=== PATIENT | female | born 1970 | race Caucasian/White ===

== ENCOUNTER 2017-02-07 16:41 | Emergency (ER) | payer MEDICARE, OTHER ==
[~2017-02-07] VITALS: Ht 162.5 cm; Wt 68.0 kg
[~2017-02-07 16:41] MED LIST: AMOXICILLIN500 MG PO; CIPROFLOXACIN500 MG PO; DARVOCET N 1001 TAB PO; DAYPRO600 M1 PO; FLEXERIL10 MG PO; FLONASE ALLERG9.9 ML NAS; HYDROCODONE BIT1 T11 PO; LORTAB 7.5/5001 TA1 PO; MIDRIN (DURADR1 CAP PO; MOTRIN800 MG PO; PHENERGAN25 MG RC; PREDNISONE10 MG PO; PRILOSEC20 MG PO; ROBAXIN750 MG PO; ROBITUSSIN AC 110 ML PO; TORADOL10 MG PO; ULTRAM 50 MG ED2 TAB PO; VALTREX500 MG PO; VICODIN 5/500 505 MG PO; VICODIN 500 MG-1 TAB PO; VICODIN ES 7501 TAB PO; Vicodin 5/500 505 MG PO; ZANAFLEX4 M1 PO; ZITHROMAX Z PA250 MG PO; ZOFRAN ODT4 MG SL
[2017-02-07 16:50] VITALS: BP 134/80
[2017-02-07] MEDS ORDERED: ALEVE220 MG PO (16:56)
[2017-02-07] MEDS ORDERED: PREDNISONE10 MG PO (17:05)
[2017-02-07] MEDS ORDERED: ROBITUSSIN AC 110 ML PO (17:05)
[2017-02-07] MEDS ORDERED: FLONASE ALLERG9.9 ML NAS (17:05)
[2017-02-07] MEDS ORDERED: CLARITIN10 MG PO (17:05)
== END 2017-02-07 17:58 | disposition home or self-care (01) ==
LOC: ED 16:41
DX: B34.9 Viral infection, unspecified (principal); R03.0 Elevated blood-pressure reading, without diagnosis of hypertension; F17.200 Nicotine dependence, unspecified, uncomplicated

== ENCOUNTER 2017-03-18 14:19 | Inpatient (IN) | payer MEDICARE, OTHER ==
[~2017-03-18] VITALS: Ht 162.6 cm; Wt 72.6 kg
--- NOTE | ~2017-03-18 | PR ---
[place], [place] PROGRESS NOTE NAME: JAIRO RONDON [facility] #: [id number] UNIT #: [id number] ROOM: 405 DOCTOR: CHANTAL WILLIAMSON MD BIRTHDATE: [birth year] DOS: 03/21/2017 CARDIOLOGY PROGRESS NOTE SUBJECTIVE: The patient was seen at her bedside this morning, 03/21/2017, for followup of chest pain and abnormal stress test. She continues to have chest discomfort intermittently. She is hungry and thirsty. She has been scheduled for catheterization later today at the [facility] and we are awaiting their request for us to transfer her. PHYSICAL EXAMINATION: VITAL SIGNS: Today, her pulse is 72 and regular, blood pressure is 100/78. She is afebrile. NECK: Supple. She has no jugular distention. CHEST: Clear. HEART: Has a regular rhythm with a fourth heart sound, but no third heart sound or murmur. ABDOMEN: Soft and normally active. EXTREMITIES: Showed no edema. IMPRESSION: 1. Atypical chest pain. 2. Abnormal stress test consistent with mid and distal LAD stenosis with anteroapical ischemia. PLAN: The patient is scheduled to have heart catheterization today. Further recommendations will depend upon the results of the test. We thank the hospitalist physicians for asking our advice regarding her care. CHANTAL WILLIAMSON MD CM:PNTRANS [id number] CHANTAL WILLIAMSON MD 03/22/17 0227 interface
--- NOTE | ~2017-03-18 | CON ---
[place], [place] REPORT OF CONSULTATION [id number] UNIT #: [id number] ROOM: 405 DOCTOR: TIN CORONADAVE BIRTHDATE: [birth year] DOS: 03/19/2017 REQUESTING PHYSICIAN: Dr. Shabazz. REASON FOR CONSULTATION: Chest pain. ASSESSMENT: 1. Current presentation with chest pain, heavy, tight with activity. 2. Similar complaint one year ago. The patient did not seek any medical attention. 3. Active tobacco abuse. 4. Obesity with probable obstructive sleep apnea. 5. Elevated D-dimer with a negative CTA of the chest. PLAN: 1. Cycle cardiac enzymes. 2. Keep patient n.p.o. for a stress test in a.m. 3. Initiate Lopressor 25 mg 1 tablet p.o. b.i.d. 4. Enteric-coated aspirin 81 mg. 5. Call for any recurrent chest pain despite the possibility of a normal stress test. 6. Early followup as an outpatient in our clinic here in [place] within 2-4 weeks. HISTORY AND PHYSICAL: The patient is a pleasant 46-year-old female unknown to our practice, was referred by Dr. Shabazz for further evaluation of complaint of chest pain that apparently occurred yesterday while carrying her grandbaby and climbing stairs. The pain is heavy, tight substernal, it did radiate straight to the back and between the shoulder blades associated with nausea and vomiting and cold sweats. This pain lasted about 30 minutes, improved slightly by nitroglycerin by the time she is in the Emergency Room. She had history of back surgery and long rods placed about 8 years ago with limiting her functional capacity significantly. She does not exercise and she tends to stay at home. She also reported significant symptomatic palpitation that lasted a few hours with racing heartbeats that she thought it has no reason for it. The patient noticed this symptomatic palpitation gets worse if she tried to lie down. The patient had similar episode about 1 year ago. No fever, no chills, no night sweats. Maintained good appetite, no weight loss. PAST MEDICAL HISTORY: As detailed in my assessment. SOCIAL HISTORY: The patient continued to smoke, has been doing this for the past 30 years about 1 pack a day. No alcohol or illicit drug abuse. FAMILY HISTORY: The patient's mother of lung cancer at age 71. Her father of unknown causes to her, but most likely from diabetes complications and advanced amputation in the left leg. The patient had 2 brothers and 4 sisters with no reported early family history of heart disease. CURRENT MEDICATIONS: Lovenox, Toradol, Reglan, calcium carbonate, Optiray, [place], [place] REPORT OF CONSULTATION NAME: JAIRO RONDON UNIT #: [id number] ROOM: 405 DOCTOR: DAVE CASTLE MD BIRTHDATE: [birth year] nicotine inhaler, Dulcolax, milk of magnesia, Tylenol, nitroglycerin patch. ALLERGIES: The patient has no known drug allergies. REVIEW OF SYSTEMS: Currently, the patient denies any headache, diplopia or blurry vision. No fever, no chills, no night sweats. No abdominal pain, no bright red blood per rectum or tarry stools, no joint pain, no muscular pain. No anxiety or depression. No polyuria, no polydipsia, no skin rash. PHYSICAL EXAMINATION: GENERAL: The patient is alert, oriented x3, quite pleasant. She is sitting up in bed, does not appear in distress. VITAL SIGNS: Blood pressure 110/72, heart rate 84, respiratory rate of 20, temperature 98.0. HEENT: Extraocular muscles intact. Pupils equal, round, reactive to light. Conjunctivae: No pallor. Throat: No petechiae. NECK: Good upstroke. Unable to appreciate any bruit, no lymphadenopathy, no thyromegaly. HEART: S1, S2 with holosystolic murmur in the left upper sternal border. No rub. No retrosternal heave. CHEST AND BACK: No deformities. LUNGS: Clear to auscultation. Good air movement. No wheezing, rales. ABDOMEN: Obese, soft, nontender. Present bowel sounds. No masses, no bruits. LOWER EXTREMITIES: No edema with faint distal pulses. NEUROLOGIC: Grossly nonfocal. SKIN: No significant rash. LABORATORY DATA: White count 11.7. Potassium 3.6. GFR more than 60. Normal liver function tests. Troponin less than 0.015. Triglycerides 189, total cholesterol 119, LDL 48, HDL is 33. TSH . DAVE CASTLE MD CM:CONSTR:REPORT OF CONSULTATION 1045 03/19/17 1802 interface
--- NOTE | ~2017-03-18 | PR ---
[place], [place] PROGRESS NOTE NAME: JAIRO RONDON UNIT #: [id number] ROOM: 405 DOCTOR: CHANTAL WILLIAMSON MD BIRTHDATE: [birth year] DOS: The patient was seen in the Cardiology Department just prior to her stress test today. She is a 46-year-old woman with a history of active tobacco abuse and possible obstructive sleep apnea who presented to the hospital with chest discomfort. Since she has been in the hospital serial cardiac biomarkers have been negative for an acute myocardial injury. Her lipid profile is intermediate risk. Her electrocardiogram has showed no acute changes. PHYSICAL EXAMINATION: VITAL SIGNS: Today, her pulse is 68 and regular. Blood pressure is 100/64. She is afebrile. She weighs 72.6 kg and has a body mass index of 27.5. HEENT: Normocephalic, atraumatic. Extraocular muscles are intact. Sclerae are clear. Pupils are equal, round and reactive to light. The oral mucosa is moist. Tongue is midline. Neck is supple. She has no jugular distention. Carotids are full without bruits. She has no neck or supraclavicular masses and no thyromegaly. LUNGS: Respirations are unlabored. Her chest is clear to auscultation and percussion. She has no presacral edema or chest wall tenderness. HEART: Regular rhythm. She has a fourth heart sound, but no third heart sound or murmur. The PMI is not displaced. She has no precordial heave, lift or thrill. ABDOMEN: Soft and normoactive without masses, organomegaly or bruits. EXTREMITIES: Showed no edema. Peripheral pulses are palpable in the feet. IMAGING: Her electrocardiogram showed no acute changes today. IMPRESSION: 1. Atypical chest pain, etiology to be discovered. 2. Active tobacco abuse. 3. Elevated D-dimer with negative CT angiogram of the chest. PLAN: We will evaluate her further with a pharmacologic stress test. Further recommendations depend upon the results of the stress examination. [facility] and I thank the hospitalist group for asking our advice regarding the patient's evaluation. [place], [place] PROGRESS NOTE NAME: JAIRO RONDON UNIT #: [id number] ROOM: 405 DOCTOR: CHANTAL WILLIAMSON MD BIRTHDATE: [birth year] CHANTAL WILLIAMSON MD CM:PNTRANS 1027 CHANTAL WILLIAMSON MD 03/20/17 2110 interface
--- NOTE | ~2017-03-18 | WRIGHTHP ---
[place], [place] PATIENT HISTORY AND PHYSICAL EXAM NAME: JAIRO RONDON [facility] #: [id number] UNIT #: [id number] ROOM: 405 DOCTOR: CARLOS MOLINA DO BIRTHDATE: [birth year] DOS: PRIMARY CARE PHYSICIAN: None. The patient was seen and evaluated with the resident on 03/18/2017. Please see the resident's note for further details. ASSESSMENT: 1. Chest pain, rule out myocardial infarction. 2. Syncope. 3. Dyspnea on exertion. 4. Headache. 5. Leukocytosis. 6. Tobacco abuse. 7. Dyslipidemia. 8. Chronic back pain. 9. History of gastroesophageal reflux disease and hiatal hernia. 10. Anxiety. PLAN: We will continue to monitor cardiac enzymes. Cardiology will be consulted. A stat CTA of the chest will be ordered to rule out PE. A CT of the head will also be ordered. She will be given a dose of Toradol, Reglan and IV fluids in an attempt to control her headache. CARLOS MOLINA DO CM:HISPHYS:PATIENT HISTORY AND PHYSICAL EXAMINATION 1848 01 CARLOS MOLINA DO 03/18/171902 interface
--- NOTE | ~2017-03-18 | ST ---
[place], [place] EXERCISE STRESS TEST REPORT NAME: JAIRO RONDON [facility] #: [id number] UNIT #: [id number] ROOM: 405 DOCTOR: CHANTAL WILLIAMSON MD BIRTHDATE: [birth year] DOS: 03/20/2017 INDICATIONS: Atypical chest pain. PROCEDURE: The patient received a rapid infusion of regadenoson 0.4 mg intravenously followed by a saline flush. She experienced chest discomfort and dyspnea, which resolved spontaneously. Her resting electrocardiogram showed sinus rhythm and was normal tracing. Her resting heart rate of 73 grace to 105. The resting blood pressure of 120/74 fell to 104/62. She did not have any diagnostic ST or T-wave changes. After the infusion of regadenoson, she was given radionuclide intravenously. IMPRESSION: 1. Well tolerated infusion of regadenoson. 2. Radionuclide was administered. Please see the separately dictated imaging report for further details of the patient's stress test results. CHANTAL WILLIAMSON MD CM:STRESS:EXERCISE STRESS TEST REPORT [id number] CHANTAL WILLIAMSON MD
[~2017-03-18 14:19] MED LIST changes: +ALEVE220 MG PO; +CLARITIN10 MG PO
[2017-03-18 14:28] VITALS: BP 133/86
[2017-03-18 14:58] LABS: BASO % 0.3 % (0.0-1.0); EOS % 0.2 % (1.0-4.0); HEMATOCRIT 40.9 % (37.0-47.0); IG # 0.1 10*3/uL (0.0-0.1); LYMPH # 3.1 10*3/uL (1.3-4.4); LYMPH % 21.8 % (27.0-41.0); MEAN CORPUSCULAR HGB 29.1 pg (27.0-31.0); MEAN CORPUSCULAR HGB CONC 34.2 g/dl (33.0-37.0); MEAN PLATELET VOLUME 9.6 fl (9.6-12.3); MONO # 0.5 10*3/uL (0.1-1.0); MONO % 3.1 % (3.0-9.0); NEUT # 10.7 10*3/uL (2.3-7.9); NEUT % 74.2 % (47.0-73.0); PLATELET COUNT AUTOMATED 293 10*3/uL (130-400); RED BLOOD COUNT 4.81 10*6/uL (4.10-5.10); RED CELL DISTRI WIDTH 14.3 % (0-14.5); WHITE BLOOD COUNT 14.4 10*3/uL (4.8-10.8)
[2017-03-18 15:01] VITALS: BP 135/85
[2017-03-18 15:14] LABS: BUN 11 mg/dl (7-24); CARBON DIOXIDE 22 mmol/L (21-32); CHLORIDE 106 mmol/L (98-107); EST GLOM FILT AFRICAN AMERICAN > 60 ml/min; GLUCOSE 144 mg/dL (65-99); POTASSIUM 3.6 mmol/L (3.5-5.1); SODIUM 135 mmol/L (136-145)
[2017-03-18 15:16] LABS: TROPONIN I < 0.015 ng/ml (<0.045)
[2017-03-18 16:00] VITALS: BP 138/86
[2017-03-18 16:22] VITALS: BP 138/86
[2017-03-18 20:00] VITALS: BP 115/66
[2017-03-19] VITALS: BP 103/64
[2017-03-19 06:32] LABS: BASO # 0.1 10*3/uL (0.0-0.1); BASO % 0.4 % (0.0-1.0); EOS # 0.1 10*3/uL (0.0-0.4); EOS % 0.9 % (1.0-4.0); HEMATOCRIT 38.9 % (37.0-47.0); HEMOGLOBIN 12.9 g/dl (12.0-16.0); IG # 0.1 10*3/uL (0.0-0.1); LYMPH # 3.5 10*3/uL (1.3-4.4); LYMPH % 29.6 % (27.0-41.0); MEAN CELL VOLUME 86.8 fl (81.0-99.0); MEAN CORPUSCULAR HGB 28.8 pg (27.0-31.0); MEAN CORPUSCULAR HGB CONC 33.2 g/dl (33.0-37.0); MEAN PLATELET VOLUME 9.7 fl (9.6-12.3); MONO # 0.6 10*3/uL (0.1-1.0); MONO % 4.8 % (3.0-9.0); NEUT # 7.4 10*3/uL (2.3-7.9); NEUT % 63.8 % (47.0-73.0); PLATELET COUNT AUTOMATED 270 10*3/uL (130-400); RED BLOOD COUNT 4.48 10*6/uL (4.10-5.10); RED CELL DISTRI WIDTH 14.2 % (0-14.5); WHITE BLOOD COUNT 11.7 10*3/uL (4.8-10.8)
[2017-03-19 06:54] LABS: ALBUMIN 3.5 gm/dl (3.1-4.5); BILIRUBIN, TOTAL 0.5 mg/dl (0.2-1.0); BUN 16 mg/dl (7-24); CARBON DIOXIDE 23 mmol/L (21-32); CHLORIDE 106 mmol/L (98-107); CHOLESTEROL 119 mg/dL (<200); EST GLOM FILT AFRICAN AMERICAN > 60 ml/min; GLUCOSE 144 mg/dL (65-99); POTASSIUM 3.6 mmol/L (3.5-5.1); SGOT/AST 20 IU/L (3-35); SGPT/ALT 20 U/L (12-78); SODIUM 136 mmol/L (136-145); TOTAL PROTEIN 7.6 gm/dL (6.4-8.2); TRIGLYCERIDES 189 mg/dl (<150); VLDL CHOLESTEROL 38 mg/dL (6-40)
[2017-03-19 06:56] LABS: HEMOGLOBIN A1c 5.9 % (4.8-5.6)
[2017-03-19 07:03] LABS: ALKALINE PHOSPHATASE 72 U/L (45-117); HDL CHOLESTEROL 33 mg/dl (40-60); LDL CHOLESTEROL 48 mg/dL (9-159)
[2017-03-19 08:00] VITALS: BP 110/72
[2017-03-19 12:00] VITALS: BP 122/72
[2017-03-19 16:00] VITALS: BP 120/67
[2017-03-19 20:00] VITALS: BP 118/70
[2017-03-20] VITALS: BP 114/74
[2017-03-20 06:27] LABS: BILIRUBIN NEGATIVE (NEGATIVE); BLOOD NEGATIVE (NEGATIVE); CLARITY SL CLOUDY (CLEAR); COLOR YELLOW (YELLOW); GLUCOSE NEGATIVE (NEGATIVE); KETONE NEGATIVE (NEGATIVE); LEUKO ESTERASE NEGATIVE (NEGATIVE); NITRITE NEGATIVE (NEGATIVE); PROTEIN NEGATIVE (NEGATIVE); UROBILINOGEN 0.2 E.U./dl (0.2-1.0)
[2017-03-20 06:36] LABS: BACTERIA 2+
[2017-03-20 06:37] LABS: URINE REFLEX COMMENT YES (NO)
[2017-03-20 07:31] LABS: BASO # 0.1 10*3/uL (0.0-0.1); BASO % 0.4 % (0.0-1.0); EOS # 0.1 10*3/uL (0.0-0.4); HEMATOCRIT 37.6 % (37.0-47.0); HEMOGLOBIN 12.6 g/dl (12.0-16.0); LYMPH # 3.4 10*3/uL (1.3-4.4); LYMPH % 29.8 % (27.0-41.0); MEAN CELL VOLUME 86.4 fl (81.0-99.0); MEAN CORPUSCULAR HGB CONC 33.5 g/dl (33.0-37.0); MEAN PLATELET VOLUME 9.6 fl (9.6-12.3); MONO # 0.5 10*3/uL (0.1-1.0); MONO % 4.2 % (3.0-9.0); NEUT # 7.3 10*3/uL (2.3-7.9); NEUT % 64.2 % (47.0-73.0); PLATELET COUNT AUTOMATED 251 10*3/uL (130-400); RED BLOOD COUNT 4.35 10*6/uL (4.10-5.10); RED CELL DISTRI WIDTH 13.9 % (0-14.5); WHITE BLOOD COUNT 11.4 10*3/uL (4.8-10.8)
[2017-03-20 08:00] VITALS: BP 100/64
[2017-03-20 08:04] LABS: ALBUMIN 3.6 gm/dl (3.1-4.5); ALKALINE PHOSPHATASE 70 U/L (45-117); BILIRUBIN, TOTAL 0.3 mg/dl (0.2-1.0); BUN 12 mg/dl (7-24); CARBON DIOXIDE 23 mmol/L (21-32); CHLORIDE 108 mmol/L (98-107); EST GLOM FILT AFRICAN AMERICAN > 60 ml/min; GLUCOSE 122 mg/dL (65-99); SGOT/AST 24 IU/L (3-35); SGPT/ALT 24 U/L (12-78); SODIUM 137 mmol/L (136-145); TOTAL PROTEIN 7.3 gm/dL (6.4-8.2)
[2017-03-20 12:00] VITALS: BP 127/88
[2017-03-20] MEDS ORDERED: CALCIUM CARBON500 M1 PO (15:02)
[2017-03-20] MEDS ORDERED: AUGMENTIN 875875 MG PO (15:02)
[2017-03-20] MEDS ORDERED: LOPRESSOR25 MG PO (15:02)
[2017-03-20 16:00] VITALS: BP 126/82
[2017-03-20 20:00] VITALS: BP 115/75
[2017-03-21] VITALS: BP 108/67
[2017-03-21 08:00] VITALS: BP 100/78
== END 2017-03-21 11:43 | disposition other institution (70) | DRG 303 ==
LOC: ED 14:19 → 4E 15:26 → EDHOLD 15:26 → 4E 15:33
PROVIDERS: Emergency Medicine; Family Medicine Adult Medicine
PROC: 3E073KZ Introduction of Other Diagnostic Substance into Coronary Artery, Percutaneous Approach (ICD-10-PCS; principal; 2017-03-20)
PROC: 4A02XM4 Measurement of Cardiac Total Activity, External Approach (ICD-10-PCS; principal; 2017-03-20)
DX: I25.110 Atherosclerotic heart disease of native coronary artery with unstable angina pectoris (principal); K76.0 Fatty (change of) liver, not elsewhere classified; J43.9 Emphysema, unspecified; F32.9 Major depressive disorder, single episode, unspecified; J30.1 Allergic rhinitis due to pollen; R73.9 Hyperglycemia, unspecified; J32.9 Chronic sinusitis, unspecified; D72.825 Bandemia; F17.210 Nicotine dependence, cigarettes, uncomplicated; E66.9 Obesity, unspecified; E78.5 Hyperlipidemia, unspecified; G89.29 Other chronic pain; M54.9 Dorsalgia, unspecified; K21.9 Gastro-esophageal reflux disease without esophagitis; F41.9 Anxiety disorder, unspecified; K44.9 Diaphragmatic hernia without obstruction or gangrene; Z71.6 Tobacco abuse counseling; Z87.440 Personal history of urinary (tract) infections; Z82.49 Family history of ischemic heart disease and other diseases of the circulatory system; Z83.3 Family history of diabetes mellitus; Z80.1 Family history of malignant neoplasm of trachea, bronchus and lung; Z79.899 Other long term (current) drug therapy; Z68.25 Body mass index [BMI] 25.0-25.9, adult

== ENCOUNTER → 2017-05-29 | Outpatient (CLI) | payer MEDICARE, OTHER ==
[~2017-05-29] MED LIST changes: +AUGMENTIN 875875 MG PO; +CALCIUM CARBON500 M1 PO; +LOPRESSOR25 MG PO
== END | disposition home or self-care (01) ==
LOC: RAD 13:06
DX: J20.9 Acute bronchitis, unspecified (principal); M47.894 Other spondylosis, thoracic region; M77.9 Enthesopathy, unspecified; F17.200 Nicotine dependence, unspecified, uncomplicated

== ENCOUNTER 2019-06-26 13:42 | Emergency (ER) | payer MEDICARE, OTHER ==
[~2019-06-26] VITALS: Ht 162.5 cm; Wt 59.9 kg
[2019-06-26 13:44] VITALS: BP 152/92
[2019-06-26] MEDS ORDERED: CLINDAMYCIN HC300 MG PO (14:20)
[2019-06-26] MEDS ORDERED: ANAPROX DS550 MG PO (14:20)
== END 2019-06-26 14:29 | disposition home or self-care (01) ==
LOC: ED 13:42
DX: K04.7 Periapical abscess without sinus (principal); F17.200 Nicotine dependence, unspecified, uncomplicated

== ENCOUNTER 2019-08-20 01:06 | Emergency (ER) | payer MEDICARE, OTHER, MEDICAID ==
[~2019-08-20] VITALS: Ht 162.5 cm; Wt 61.2 kg
[~2019-08-20 01:06] MED LIST changes: +ANAPROX DS550 MG PO; +CLINDAMYCIN HC300 MG PO
[2019-08-20 02:54] VITALS: BP 134/84
[2019-08-20 02:58] LABS: BILIRUBIN NEGATIVE (NEGATIVE); BLOOD TRACE-INTACT (NEGATIVE); CLARITY SL CLOUDY (CLEAR); COLOR YELLOW (YELLOW); GLUCOSE NEGATIVE (NEGATIVE); KETONE NEGATIVE (NEGATIVE); LEUKO ESTERASE 1+ (NEGATIVE); NITRITE POSITIVE (NEGATIVE); SPECIFIC GRAVITY <= 1.005 (1.005-1.030); UROBILINOGEN 0.2 E.U./dl (0.2-1.0)
[2019-08-20 03:05] LABS: EPITHELIAL CELLS 16-20; RBC 0-2 rbc/hpf (0-2)
[2019-08-20 03:06] LABS: BACTERIA 3+
[2019-08-20] MEDS ORDERED: CEPHALEXIN500 M1 PO (04:20)
== END 2019-08-20 04:30 | disposition left against medical advice (07) ==
LOC: ED 01:06
PROVIDERS: Emergency Medicine
DX: T74.21XA Adult sexual abuse, confirmed, initial encounter (principal); S01.412A Laceration without foreign body of left cheek and temporomandibular area, initial encounter; R23.3 Spontaneous ecchymoses; F17.200 Nicotine dependence, unspecified, uncomplicated; Z79.899 Other long term (current) drug therapy; Y07.03 Male partner, perpetrator of maltreatment and neglect

== ENCOUNTER 2020-09-03 12:11 | Emergency (ER) | payer OTHER ==
[~2020-09-03] VITALS: Wt 68.0 kg
[2020-09-03 12:23] VITALS: BP 158/77
== END 2020-09-03 17:45 | disposition home or self-care (01) ==
LOC: ED 12:11
DX: N20.1 Calculus of ureter (principal); Z79.899 Other long term (current) drug therapy